=== PATIENT | male | born 1960 | race Caucasian/White ===

== ENCOUNTER 2022-10-08 08:11 | Outpatient (CLI) | payer OTHER, SELFPAY | END 2022-10-08 08:12 | disposition home or self-care (01) | LOC: NFLDREF 10-10 13:19 | PROVIDERS: PCP Family Medicine; Referring Provider Family Medicine; Visit Provider Family Medicine | DX: Z00.00 Encounter for general adult medical examination without abnormal findings (principal); I10 Essential (primary) hypertension; E78.00 Pure hypercholesterolemia, unspecified | CPT/HCPCS: 80048; 80061 ==

== ENCOUNTER 2023-01-19 08:10 | Outpatient (CLI) | payer OTHER, SELFPAY | END 2023-01-19 08:11 | disposition home or self-care (01) | LOC: NFLDREF 01-21 06:00 | PROVIDERS: PCP Family Medicine; Referring Provider Family Medicine; Visit Provider Family Medicine | DX: E78.00 Pure hypercholesterolemia, unspecified (principal); R68.82 Decreased libido; Z12.5 Encounter for screening for malignant neoplasm of prostate | CPT/HCPCS: 80061; 80076; 84153; 84270; 84402; 84403 ==

== ENCOUNTER 2023-06-30 12:05 | Outpatient (CLI) | payer OTHER, SELFPAY | END 2023-06-30 12:06 | disposition home or self-care (01) | LOC: LKVREF 12:06 | PROVIDERS: PCP Family Medicine; Visit Provider Family Medicine | DX: R31.0 Gross hematuria (principal) | CPT/HCPCS: 82550; 87086 ==

== ENCOUNTER 2024-04-04 08:10 | Outpatient (CLI) | payer OTHER, SELFPAY | END 2024-04-04 08:11 | disposition home or self-care (01) | LOC: NFLDREF 04-08 01:58 | PROVIDERS: PCP Family Medicine; Referring Provider Family Medicine; Visit Provider Family Medicine | DX: Z13.1 Encounter for screening for diabetes mellitus (principal); Z12.5 Encounter for screening for malignant neoplasm of prostate; Z13.6 Encounter for screening for cardiovascular disorders | CPT/HCPCS: 80053; 80061; G0103 ==